=== PATIENT | male | born 1940 | race Caucasian/White ===

== ENCOUNTER 2019-01-14 12:26 | Outpatient (CLI) | payer MEDICARE, BC ==
[~2019-01-14] VITALS: Ht 175.3 cm; Wt 240.0 kg
[2019-01-14 13:05] LABS: TOTAL HEMOGLOBIN 17.9 G/dl (14.0-17.9)
[2019-01-14] MEDS ORDERED: albuterol 2.5 MG/3 ML nebule NEB PRN (13:30)
== END 2019-01-14 23:59 | disposition home or self-care (01) ==
LOC: RT 12:26
PROVIDERS: ATTEND Internal Medicine Pulmonary Disease
DX: J45.998 Other asthma (principal)
CPT/HCPCS: 85018; 94010; 94727; 94729